=== PATIENT | female | born 1960 | race Caucasian/White ===

== ENCOUNTER 2016-09-10 05:40 | Day surgery (SDC) | payer OTHER ==
--- NOTE | 2016-09-09 13:25 | GHP ---
[f rep st] PREOP HISTORY AND PHYSICAL DATE OF ADMISSION: 09/10/2016 HISTORY: The patient is an extremely healthy, active middle-aged female. Currently, she is fully a mbulatory, walks on a regular basis for exercise activity. She has severe degenerative osteoarthrit is of the right great toe joint. She had a joint clean-up done years ago, greater than 5 years prio r, which stabilized her right great toe, kept her exercising and active up until recently. At this point, she has developed severe degenerative osteoarthritis of the right great toe with dorsal osteo phytes and a true hallux limitus deformity. She does have some positional changes on x-ray, with th e great toe moving medially into a slight varus position, which is contributing to some of the probl ems. At this point, she has tried orthotics, change in shoes, decreased activity, anti-inflammatori es, all of which have failed to alleviate her symptoms. At this point, she wanted things taken care of on a permanent basis. ALLERGIES: To sulfa. Penicillin causes an itch. SOCIAL HISTORY: She has never used any tobacco products. Alcohol was less than 1 ounce per week. She is 5 feet 11 inches, weighs 150 pounds. Currently, she is 56 years of age. MEDICATIONS: She denies any prescription medications. REVIEW OF SYSTEMS: At her preop appointment, she denied having any chronic or recent headaches, vis ion changes, hearing difficulties. She denied any cardiac arrhythmias, chest pain, shortness of brodie ath, GI distress, neurologic, dermatologic or other musculoskeletal problems while she is doing exer cise activity. She is in excellent health, and wanted her great toe taken care of on a permanent ba sis. PHYSICAL EXAM: EXTREMITIES: Her pulses showed normal regular rate and rhythm, 2/4 on the dorsal pe edda and posterior tibial arteries. Capillary fill is less than 5 seconds to digits x10. She has mi nimal varicosities to either extremity. No edema to either extremity. NEUROLOGIC: Sharp, dull, li ght touch, vibratory sensation is all intact and symmetric to the digital level. She shows good tem perature, texture and turgor with normal hair distribution to both extremities. She has normal musc le mass and tone to the calf muscles, anterior, lateral and posterior leg muscles, as well as the in trinsic arch muscles. She showed pain-free range of motion to the ankle, subtalar and midtarsal marguerite nts on both feet. She has a moderate arch foot type with a moderate amount of midfoot pronation. S he has limited dorsiflexion to 20 degrees from neutral on the right great toe. There was crepitatio n and pain when placed in a corrected position. X-rays show slight elevatus of the 1st metatarsal with medial deviation of the great toe. ASSESSMENT: Hallux limitus deformity, right great toe. PLAN: Planned procedure is a step-down osteotomy with screw fixation, with possible reverse Mohan os teotomy with screw fixation. At her preop appointment, we discussed risks and complications. We we nt over the x-rays in detail. We talked about delay in healing, residual pain, residual arthritis. The consent form was signed. She was given oral and written postop instructions, along with a pres cription for pain medication, Percocet 10/325, #30, 1 tab p.o. q.4-6h p.r.n. pain, and she was also placed on Phenergan 12.5 mg #30, 1 tab p.o. q.6h p.r.n. nausea. She was given my personal cell [employer] number postoperatively, in case she has any problems or questions over the weekend, and she will b e followed up x3 days postop at [facility]. /[id number]/MODL
[2016-09-10] MEDS ORDERED: LIDOCAINE 1% 5 ML SDV ID PRN (06:06)
[2016-09-10] MEDS ORDERED: LR 1,000 ML IV ONE (06:06)
[2016-09-10] MEDS ORDERED: BUPIVACAINE 0.25% 30 ML SDV ONE (06:42)
[2016-09-10] MEDS ORDERED: LIDO/EPI 1% **Not for Epidural 20 ML MDV ONE (06:42)
[2016-09-10] MEDS ORDERED: ceFAZolin 1 GM/5 ML SYR ONE (06:43)
[2016-09-10] MEDS ORDERED: fentaNYL 100 MCG/2 ML INJ ONE ×2 (06:58→09:13)
[2016-09-10] MEDS ORDERED: MIDAZOLAM 2 MG/2 ML VIAL ONE (06:58)
[2016-09-10] MEDS ORDERED: PROPOFOL/EMULSION 500 MG/50 ML BOTTLE IV ONE ×2 (06:58→08:13)
[2016-09-10] MEDS ORDERED: LIDOCAINE 2% 5 ML SDV ONE ×2 (06:58)
[2016-09-10] MEDS ORDERED: HYDROCODONE/APAP 5/325 TAB ONE (09:17)
--- NOTE | 2016-09-10 12:14 | GOP ---
[f rep st] OPERATIVE REPORT DATE OF OPERATION: 09/10/2016 SURGEON: Fidel Chirinos DPM ANESTHESIA: IV MAC plus local infiltration of approximately 4 cc of 1% lidocaine with epinephrine a nd 6 cc of 0.25% Marcaine plain. ANESTHESIOLOGIST: Peter Haney DO PREOPERATIVE DIAGNOSIS: Right foot hallux limitus deformity. POSTOPERATIVE DIAGNOSIS: Right foot hallux limitus deformity. PROCEDURE PERFORMED: A modified Forrest bunionectomy with stepdown osteotomy, right great toe. FINDINGS: ESTIMATED BLOOD LOSS: Less than 5 cc. DESCRIPTION OF PROCEDURE: The patient was taken the operating room. After MAC and local anesthesia in a Wood type block, the right lower extremity was elevated, prepped and draped in the usual steri le OR fashion, achieving a sterile field about the entire distal aspect of the extremity. After jerson vation and exsanguination, tourniquet was inflated to 225 mmHg. Attention was directed to the dorsa l aspect of the right great toe joint, where approximately 3-inch converging semi-elliptical incisio ns were made over a previous scar. Dissection was carried down to the level of joint capsule. Care was taken to preserve the neurovascular status to the area. Superficial vessels were clamped and b ovied as necessary. The capsule was entered via a linear incision reflected medially and laterally. There were significant bone spurs noted on the dorsal aspect of the 1st metatarsal head, as well a s base of proximal phalanx. These were all removed utilizing a rongeur, bone saw, and rasped smooth utilizing a rotary bur. At this point, a 0.035 K-wire was placed through the metaphysis of the met atarsal, orienting the K-wire such that upon V or chevron-type osteotomy, the metatarsal would sligh tly plantarflex. The K-wire was placed plantar-medial to dorsal-lateral and then a V or chevron ost eotomy was carried out with a slightly elongated dorsal wing. The metatarsal head was shifted plant daya and slightly medially, impacted upon itself, and held temporarily with the same 0.035 K-wire. Utilizing AO technique, a single 2.4 mm OsteoMed screw was placed through the dorsal wing of the ost eotomy with excellent compression noted. The K-wire was removed from the operative site. Redundant bone medially was rasped smooth utilizing a rotary bur. The area was flushed copiously with dilute antibiotic solution. There was some significant scarring into the sesamoidal apparatus plantarly, and this was freed up via sharp and blunt dissection. 50% of the metatarsal head was devoid of cart ilage and this was drilled with the 0.035 K-wire to produce fibrocartilage formation. Again, the ar ea was flushed copiously with dilute antibiotic solution. Intraoperatively, the toe would dorsiflex to greater than 45 degrees of dorsiflexion from neutral. The capsule was then reapproximated utili aliciang 3-0 Vicryl in a simple interrupted suture. Subcu closure was carried out via 4-0 Vicryl in a h orizontal mattress suture. Skin closure was carried out via 4-0 Prolene in a horizontal mattress-ty pe suture. Adaptic, sterile dressing, 4 x 4's, and Gerry were placed over the foot. Tourniquet was released. All digits returned to uniform pink color with normal capillary fill. The patient went into recovery in a satisfactory state with all vital signs stable. Her prognosis is excellent for r apid recovery. She is to stay in a postop shoe or walking boot for the next rwtju-dks-h-half weeks. She was given my cell phone number for 24 hour calls should she have any problems or questions. A gain, follow up in 3 days at [facility]. COMPLICATIONS: There were no complications. DRAINS: No drains were placed into the operative site. /[id number]/MODL
== END 2016-09-10 10:05 | disposition home or self-care (01) ==
LOC: FSGY 05:40
PROVIDERS: ATTEND Podiatrist
PROC: 0SSM04Z Reposition Right Metatarsal-Phalangeal Joint with Internal Fixation Device, Open Approach (ICD-10-PCS; principal; 2016-09-10 07:15)
DX: M20.5X1 Other deformities of toe(s) (acquired), right foot (principal)
CPT/HCPCS: 28292; C1769; C1713; J0690; J2250; J2704; J3010

== ENCOUNTER → 2017-09-14 | Outpatient (CLI) | payer OTHER | LOC: FIMAGING 12:58 | PROVIDERS: ATTEND Internal Medicine | DX: R16.0 Hepatomegaly, not elsewhere classified (principal); N20.0 Calculus of kidney; R93.8 Abnormal findings on diagnostic imaging of other specified body structures; Z78.0 Asymptomatic menopausal state ==

== ENCOUNTER → 2018-01-24 | Outpatient (CLI) | payer OTHER | LOC: FIMAGING 14:23 | PROVIDERS: ATTEND Nurse Practitioner Women's Health | DX: Z13.820 Encounter for screening for osteoporosis (principal); M85.89 Other specified disorders of bone density and structure, multiple sites; Z78.0 Asymptomatic menopausal state ==